=== PATIENT | male | born 1930 | race Caucasian/White ===

== ENCOUNTER 2016-06-23 11:40 | Emergency (ER) | payer MEDICARE, OTHER ==
[~2016-06-23] VITALS: Ht 157.5 cm; Wt 64.5 kg
[2016-06-23 12:00] VITALS: BP 154/76; PULSE 90; RESP 20; O2SAT 97
[2016-06-23 12:15] VITALS: BP 169/64; PULSE 85; RESP 18; O2SAT 100
[2016-06-23 12:36] LABS: BASOPHILS % (AUTO) 0.3 % (0-3); EOSINOPHILS % (AUTO) 2.7 % (0-5); MONOCYTES % (AUTO) 8.2 % (4-12); Mean Corpuscular Hemoglobin 29.2 pg (27.0-35.0); Mean Corpuscular Volume 86.7 fL (81-100); NEUTROPHILS % (AUTO) 65.2 % (40-74); Platelet Count 249 bil/L (150-400)
--- NOTE | 2016-06-23 13:08 | DRSVH ---
PROCEDURE: X-RAY CHEST ONE VIEW, PORTABLE ([id number]) INDICATIONS: Shortness of breath. TECHNIQUE: One view of the chest was acquired. COMPARISON: [facility], CR, XR CHEST 2VW, 06/01/2016, 14:16. FINDINGS: Surgical changes and devices: Sternotomy. Lungs and pleura: There is chronicaly increased interstitial markings bilaterally. Calcified pleural plaques are again noted. No pleural effusions or pneumothorax. Mediastinum: Mediastinal contours appear normal. Heart size is normal. Bones and chest wall: No suspicious bony lesions. Overlying soft tissues appear unremarkable. IMPRESSION: 1. Increased interstitial markings bilaterally, unchanged. 2. Bilateral calcified pleural plaques. Recommend clinical correlation for asbestos exposure. Dictated by: Chris Orozco M.D. on 06/23/2016 at 13:05 Approved by: Chris Orozco M.D. on 06/23/2016 at 13:07
[2016-06-23 13:21] LABS: TROPONIN T < 0.010 ug/L (0.0-0.011)
[2016-06-23] MEDS ORDERED: Furosemide 10 mg/mL 4 mL Inj IVPUSH ONE (13:25)
[2016-06-23 13:37] LABS: Magnesium 1.9 mg/dL (1.6-2.6)
--- NOTE | 2016-06-23 13:55 | ED.REPORT ---
HPI-Dyspnea / Wheezing Date of Service Jun 23, 2016 ED Provider: Dulce Duggan MD History of Present Illness: Patient is a 86 y.o. M past medical history of CAD, s/p coronary artery bypass, asbestos exposure, planned spinal fusion surgery tomorrow 06/24/16. Presents to ED with worsening of shortness of breath this morning, feeling terrible this morning with pain in stomach. Patient stated that shortness of breath worsened by movement and improved with rest 5-10 minutes. Associated with abdominal pain, pain in back of neck and head, dizziness. Additional symptoms include abdominal pain described as feeling sick all over. Denies sluring of words, change in vision, syncope. Nursing Notes Stated Complaint: HEART CHECK Chief Complaint: Respiratory Distress Nursing Notes Reviewed: Yes Allergies: Coded Allergies: Sulfa (Sulfonamide Antibiotics) (Verified Allergy, Severe, Rash, 06/23/16) niacin (Verified Allergy, Severe, Rash,Itching,, 06/23/16) Scheduled Furosemide (Lasix) 40 Mg Tablet 40 MG PO DAILY General Time Seen by MD: 12:45 Chief Complaint Shortness of breath Sudden in Onset?: Yes Onset Occurred: 5 - 8 hours ago Symptom Duration: Since onset Severity: Current: No pain currently Severity: Maximum: No pain Recent Healthcare: Recent doctor visit Past Medical History Past Medical History Osteoarthrosis, elbow Medication side effects SPINAL STENOSIS ARTHRITIS-SHOULDER GERD Dermatitis CKD (chronic kidney disease) CAD Osteoarthrosis, Generalized DIVERTICULOSIS Spinal stenosis of lumbar region Pneumonitis Cough Low back pain RHEUMATISM HYPERLIPIDEMIA HTN (hypertension) Rash POLYMYALGIA RHEUMATICA Cystitis Bladder neck obstruction HYPERTENSION-BENIGN ESSENTIAL LUMBAR DISC DISORDER CAD (coronary artery disease) Chronic kidney disease, Stage II (mild) SEBORRHEIC DERMATITIS Carpal Tunnel Syndrome ANEMIA, CHRONIC DISEASE Greater trochanteric bursitis of right hip Past Surgical History s/p CABG 1 vessel Smoking History Former Smoker (quit 70 years ago) Social History Alcohol Use: Denies alcohol use Drug Use: Denies drug use Review of Systems Basic Review of Systems Eyes: Vision NL, No discharge GI: No abdominal pain, No anorexia, No nausea, No vomiting : No dysuria, No frequency Hematologic: No bleeding, No bruising Neurologic: NL mental status, No weakness, No numbness Psychiatric: Normal thought content Constitutional: Reports: Fatigue, Denies: Chills, Fever Respiratory: Reports: Dyspnea on exertion, Prod cough, white, Shortness of breath Cardiovascular: Reports: Dyspnea on exertion, Denies: Chest pain, Orthopnea, Parox nocturnal dyspnea Musculoskeletal: Reports: Back pain Complete sys rev & neg: except as marked. Physical Exam Initial Vital Signs Vital Signs (First) Date Time Temp Pulse Resp B/P Pulse Ox O2 Delivery O2 Flow Rate FiO2 06/23/16 12:00 36.8 90 20 154/76 97 Room Air Head / Eyes: Atraumatic, Normocephalic, PERRL Abdomen / GI: Soft, Non-tender, No guarding, No rebound, No distention Back: No CVA tenderness Lymphatic: No lymphadenopathy Skin: Warm, Dry, No cyanosis Neurologic: Alert, Oriented, Nonfocal Psychiatric: Mood/affect normal, Behavior normal, Normal thought content General/Constitutional: Awake, Alert Respiratory / Chest: Atraumatic Wheezing / Retractions: Positive: Wheezing expiratory, Negative: Intercostal retractions Rales / Rhonchi: Negative: Rales L base, Rales R base Cardiovascular: Heart rate NL, Regular rhythm, Heart sounds NL, Peripheral circulation NL Abdomen: Soft, Non-tender, No guarding, No rebound Interpretation & Diagnostics Lab Results Interpretation Result Diagram: 06/23/16 1225 06/23/16 1225 Test 06/23/16 12:25 06/23/16 12:45 White Blood Count 6.6th/mm3 (3.8-10.1) Red Blood Count 4.42mil/mm3 (4.40-5.80) Hemoglobin 12.9g/dL (13.8-17.2) Hematocrit 38.3% (41.0-50.0) Mean Corpuscular Volume 86.7fL (81-100) Mean Corpuscular Hemoglobin 29.2pg (27.0-35.0) Mean Corpuscular Hemoglobin Concent 33.7% (32.0-37.0) Red Cell Distribution Width 12.9% (12.3-15.4) Platelet Count 249bil/L (150-400) Neutrophils (%) (Auto) 65.2% (40-74) Lymphocytes (%) (Auto) 23.4% (14-46) Monocytes (%) (Auto) 8.2% (4-12) Eosinophils (%) (Auto) 2.7% (0-5) Basophils (%) (Auto) 0.3% (0-3) D-Dimer 1.2mg/L (<0.50) Sodium Level 136mEq/L (134-144) Potassium Level 4.0mEq/L (3.5-5.2) Chloride Level 97mEq/L (97-108) Carbon Dioxide Level 22mmol/L (18-29) Blood Urea Nitrogen 24mg/dL (8-27) Creatinine 1.57mg/dL (0.76-1.27) Estimat Glomerular Filtration Rate 45mL/min (>59) Glucose Level 130mg/dL (60-99) Calcium Level 9.3mg/dL (8.5-10.1) Magnesium Level 1.9mg/dL (1.6-2.6) Total Bilirubin 0.3mg/dL (0.0-1.2) Aspartate Amino Transf (AST/SGOT) 20U/L (0-50) Alanine Aminotransferase (ALT/SGPT) 14U/L (0-44) Alkaline Phosphatase 88U/L (25-160) Troponin T < 0.010ug/L (0.0-0.011) Pro-B-Type Natriuretic Peptide 252.3pg/mL (0-486) Total Protein 7.2g/dL (6.4-8.4) Albumin 4.4g/dL (3.4-5.0) Hold Rea Top Tube Received (Received) X-Ray Chest Interpretation Chest Xray Interpretation: IMPRESSION: 1. Increased interstitial markings bilaterally, unchanged. 2. Bilateral calcified pleural plaques. Recommend clinical correlation for asbestos exposure. Dictated by: Chris Orozco M.D. on 06/23/2016 at 13:05 Approved by: Chris Orozco M.D. on 06/23/2016 at 13:07 View: Portable Interpretation / Wet Read by: Interpret - Radiologist Re-Eval/Medical Decision Med Decision/Clinical Course Patient is a 86 y.o. M past medical history of CAD, s/p coronary artery bypass, asbestos exposure, planned spinal fusion surgery tomorrow 06/24/16. Presents to ED with worsening of shortness of breath this morning, feeling terrible this morning with pain in stomach. DDx acute CHF excerabation, exertional dyspnea, r/o ACS, CBC showed mild anemia consistent with prior outpatient labs, no acute infection CMP Cr 1.57 not significantly elevated from patient's base line per outpatient records 1.5-1.7 Troponin < 0.01 BMP 245 last BMP 06/09/16 270 CXR show presence interstial thickening O2 sat at rest 98% on RA, walking desat 91% on RA Reccomend patient reschedules his surgery tomorrow and follow up with his bariatric program coordinator Dr. Hammond within one week. Increase lasix to 40 mg PO Daily Consultation #1: Consulted With: [employer]ing [employer] Tender: Will see in office, Agrees with eval Note: Dr Fragoso Consultation #2: Consulted With: Orthopedic Call Returned at: 15:39 Site Lead: Will see in office, Agrees with eval Note: Agrees with rescheduing back surgery after further cardiac eval. Dr Tang Differential Diagnosis: Positive: Anxiety, Congestive heart failure, Negative: Acute coronary syndrome, Bronchitis, Myocardial infarction, Pneumonia, Pneumothorax, Upper resp infection Discharge & Departure Impression: Primary Impression: CHF exacerbation Additional Impression: Exertional dyspnea Ruled Out: ACS (acute coronary syndrome) Disposition: Home Discharge Condition All VS Reviewed: Yes Condition: Stable Additional Instructions: During you visit to [facility] Emergency Department we obtained an EKG, chest x-ray, blood work for infectious markers, hemoglobin levels, and electrolytes. Your chest x-ray show thickening of interstitial markings Labs and EKG were negative for signs of acute coronary syndrome, ischemic changes of your heart All your lab values were within normal limits and your imaging showed no acute processes or abnormalities. Your vital signs were stable and safe for discharge. We will send you home with - Refill for Lasix 40 mg take by mouth daily. Do not hesitate to call emergency services or your primary care physician if you experience any of the following. - High unrelenting fevers. - Uncontrolled vomiting. - Severe hypertension. - Syncope or loss of consciousness. - Chest pain or severe shortness of breath. Your visit was discussed with you orthopedic surgeon Dr. Tang, we are in agreement that your surgery should be postponed until your symptoms are under better control. Follow up with your bariatric program coordinator at next available appointment within one week. Follow up with your orthopedic surgeon at next available appointment to reschedule surgery. Follow up with your primary care physician in 1-2 weeks time following your emergency department visit for medication checks and general well-being. Referrals: Ramiro Ritter MD (PCP) Attending Statement Patient seen and examined. Exertional dyspnea reportedly more in the last week. Has had workup recently including echo. He is a bit anxious about his upcoming back surgery. Initial workup here is unremarkable he does have documented dropping oxygen level with minimal exertion. Likely more consistent with heart failure rather than acute coronary syndrome. Agree With increased Lasix cardiology follow-up and rescheduling back surgery copies to: Ramiro Ritter MD; Shabbir Hammond MD, AARON J DO Jun 23, 2016 13:24 Dulce Duggan MD Jun 23, 2016 15:41
[2016-06-23 15:15] VITALS: BP 146/64; PULSE 76; RESP 12; O2SAT 95
[2016-06-23] MEDS ORDERED: FURO-128 PO (15:26)
[2016-06-23 15:47] VITALS: BP 146/64; PULSE 76; RESP 12; O2SAT 95
[2016-06-23 15:59] LABS: APPEARANCE,URINE CLEAR (CLEAR,HAZY); COLOR,URINE STRAW (YELLOW); OCCULT BLOOD,URINE TRACE (NEGATIVE); UROBILINOGEN,URINE NORMAL (NORMAL)
== END 2016-06-23 15:48 | disposition home or self-care (01) ==
LOC: SED 11:40
DX: I13.0 Hypertensive heart and chronic kidney disease with heart failure and stage 1 through stage 4 chronic kidney disease, or unspecified chronic kidney disease (principal); I50.9 Heart failure, unspecified; R06.00 Dyspnea, unspecified; R10.9 Unspecified abdominal pain; M54.2 Cervicalgia; R51 Headache; R42 Dizziness and giddiness; N18.9 Chronic kidney disease, unspecified; I25.10 Atherosclerotic heart disease of native coronary artery without angina pectoris; K21.9 Gastro-esophageal reflux disease without esophagitis; E78.5 Hyperlipidemia, unspecified; Z95.1 Presence of aortocoronary bypass graft; Z87.891 Personal history of nicotine dependence; Z88.2 Allergy status to sulfonamides; Z88.8 Allergy status to other drugs, medicaments and biological substances
CPT/HCPCS: 36415; 71010; 80053; 81000; 82948; 83735; 83880; 84484; 85025; 85379; 93005; 96374; 99285; J1940